=== PATIENT | male | born 1960 | race African-American/Black ===

== ENCOUNTER 2025-05-14 15:53 | Inpatient (IN) | payer OTHER ==
[~2025-05-14] VITALS: Ht 182.9 cm; Wt 54.4 kg
[2025-05-14] MEDS ORDERED: IV NS 0.9% 1,000 ML BAG IV ONE (16:30)
[2025-05-14] MEDS: IV NS 0.9% 1,000 ML BAG IV ONE (16:50)
[2025-05-14] MEDS: PIPERACILLIN /TAZOBACTAM 3.375 G in IV D5W 50 ML IV ONE (16:50)
[2025-05-14] MEDS ORDERED: DEXTROSE 50%-WATER 50 ML DISP.SYRIN ONE (16:58)
[2025-05-14 17:01] LABS: CALCIUM, SERUM 9.8 mg/dL (8.5-10.1); CREATININE 1.4 mg/dL (0.6-1.3); SODIUM SERUM 138 mmol/L (136-145); UREA NITROGEN, BLOOD 64 mg/dL (7-18)
[2025-05-14] MEDS: DEXTROSE 50%-WATER 50 ML DISP.SYRIN IV ONE (17:03)
[2025-05-14 17:10] LABS: PLATELET COUNT (AUTO) 113 K/uL (150-450); RED BLOOD CELL COUNT(AUTO) 3.56 MIL/uL (4.5-6.0); RED CELL DISTRIBUTION WIDTH 15.9 % (11.5-15.0); WHITE BLOOD COUNT (AUTO) 4.0 K/uL (4.3-11.0)
[2025-05-14 17:15] LABS: ASPARTATE AMINOTRANSFERASE 21 U/L (15-37); NT-PRO BNP 375 pg/mL (0-125); TOTAL PROTEIN, SERUM 6.4 g/dL (6.4-8.2)
[2025-05-14 17:21] LABS: INR 1.23 (0.91-1.10)
[2025-05-14] MEDS: VANCOMYCIN 1 GM in IV D5W 250 ML IV ONE (17:21)
[2025-05-14 17:33] LABS: APPEARANCE,URINE CLEAR (CLEAR); BLOOD, URINE NEGATIVE Ery/uL (NEGATIVE); LEUKOCYTE ESTERASE ,URINE NEGATIVE (NEGATIVE); NITRITE, URINE NEGATIVE (NEGATIVE); UGLUCOSE NEGATIVE (NEGATIVE)
[2025-05-14] MEDS: ALBUTEROL FS 2.5 MG/3 ML VIAL.NEB NEB ONE (17:39)
[2025-05-14 17:40] VITALS: O2SAT 99
[2025-05-14 17:50] LABS: ADD URINE CULTURE NO; SQUAMOUS EPITHELIAL CELL,UR 0-2 /HPF (None Seen)
[2025-05-14 17:51] VITALS: O2SAT 100
[2025-05-14 17:51] LABS: HYALINE CASTS, URINE Few /LPF (None Seen)
[2025-05-14] MEDS: SODIUM BICARBONATE SYR 50 MEQ/50 ML DISP.SYRIN IV ONE (17:58)
[2025-05-14] MEDS: SODIUM POLYSTYRENE SULFONATE 15 G/60 ML BOTTLE PO ONE (17:58)
[2025-05-14 18:08] LABS: LACTIC ACID 2.0 mmol/L (0.4-2.0)
[2025-05-14] MEDS ORDERED: ONDANSETRON HCL/PF 4 MG/2 ML VIAL IVP PRN (20:30)
[2025-05-14] MEDS ORDERED: MAG HYDROX/AL HYDROX/SIMETH 30 ML UDC PO PRN (20:30)
[2025-05-14] MEDS ORDERED: TEMAZEPAM 15 MG CAPSULE PO PRN (20:30)
[2025-05-14] MEDS ORDERED: ACETAMINOPHEN 325 MG TABLET PO PRN (20:30)
[2025-05-14 20:53] LABS: IRON, SERUM 56 ug/dl (50-175)
[2025-05-14 21:30] VITALS: BP 118/78; TEMP 98.1; O2SAT 95
[2025-05-14] MEDS: IV NS 0.9% 1,000 ML IV PRN (21:52)
[2025-05-14 23:37] LABS: CALCIUM, SERUM 9.6 mg/dL (8.5-10.1); CREATININE 1.5 mg/dL (0.6-1.3); SODIUM SERUM 135.0 mmol/L (136-145); UREA NITROGEN, BLOOD 60.0 mg/dL (7-18)
[2025-05-15 07:00] VITALS: BP 97/72; O2SAT 100
[2025-05-15] MEDS ORDERED: DOSING PER PHARMACY-VANCOMYCIN IV XX PRN (07:00)
[2025-05-15] MEDS ORDERED: DOSING PER PHARMACY-CEFEPIME IVPB XX PRN (07:00)
[2025-05-15 07:18] LABS: PLATELET COUNT (AUTO) 91 K/uL (150-450); RED BLOOD CELL COUNT(AUTO) 3.18 MIL/uL (4.5-6.0); RED CELL DISTRIBUTION WIDTH 15.8 % (11.5-15.0); WHITE BLOOD COUNT (AUTO) 3.7 K/uL (4.3-11.0)
[2025-05-15] MEDS: PANTOPRAZOLE 40 MG TABLET.DR PO SCH (07:49)
[2025-05-15] MEDS: CEFEPIME 2 GM in IV D5W 100 ML IV SCH (07:57)
[2025-05-15] MEDS ORDERED: CEFEPIME 1 GM in IV NS 0.9% 50 ML IV ONE (08:00)
[2025-05-15 08:05] LABS: CALCIUM, SERUM 9.5 mg/dL (8.5-10.1); CREATININE 1.8 mg/dL (0.6-1.3); PHOSPHORUS 2.5 mg/dL (2.5-4.9); SODIUM SERUM 133.0 mmol/L (136-145); UREA NITROGEN, BLOOD 60.0 mg/dL (7-18)
[2025-05-15 11:00] LABS: LYMPHOCYTES % (MANUAL) 8 % (16-48); MONOCYTES % (MANUAL) 6 % (0-11.0); NEUTROPHILS % (MANUAL) 86 (42-76); PLATELET ESTIMATE DECREASED
[2025-05-15] MEDS: ENSURE ENLIVE CHOC 237 ML CAN PO SCH (11:13)
[2025-05-15 11:42] LABS: FREE PSA < 0.06 ng/mL (0.00-45); IRON, SERUM 52 ug/dl (50-175)
[2025-05-15 11:46] LABS: PROSTATE SPECIFIC ANTIGEN SCR < 0.13 ng/mL (0.00-4.00)
[2025-05-15 15:37] LABS: CREATININE, URINE 343.0 MG/DL (30.0-125.0); URINE SODIUM, RANDOM 101.0 mmol/l (40-220); URINE TOTAL PROTEIN 308.0 mg/dL (0-11.9)
[2025-05-15 16:00] VITALS: BP 96/81; TEMP 95.4; O2SAT 100
[2025-05-15 17:16] LABS: RHEUMATOID FACTOR SCREEN NEGATIVE (NEGATIVE)
[2025-05-15] MEDS: VANCOMYCIN 1 GM in IV D5W 250ml IV SCH (18:18)
[2025-05-15 20:26] VITALS: BP 105/76; TEMP 97.3; O2SAT 94
[2025-05-15 23:20] VITALS: BP 107/86
[2025-05-15 23:21] VITALS: BP_SYST 115; BP_SYST 117; BP_DIAS 92; BP_DIAS 93
[2025-05-16 00:25] VITALS: BP 107/86; TEMP 97.3; O2SAT 94
[2025-05-16 04:42] VITALS: BP 103/79; TEMP 97; O2SAT 94
[2025-05-16 08:00] VITALS: BP 100/82; TEMP 98.1; O2SAT 95
[2025-05-16 09:08] LABS: HEPATITIS B CORE AB, TOTAL Positive (Negative); HEPATITIS B SURFACE AB (QUAL) Reactive (.)
[2025-05-16] MEDS: THERAHONEY GEL 1.5 OZ TUBE TP SCH (09:51)
[2025-05-16] MEDS: ENOXAPARIN SODIUM 30 MG/0.3 ML DISP.SYRIN SQ SCH (09:57)
[2025-05-16 10:07] LABS: FREE KAPPA LT CHAINS SERUM 92.5 mg/L (3.3-19.4); FREE LAMBDA LT CHAIN SERUM 56.9 mg/L (5.7-26.3); IMMUNOGLOBULIN M, SERUM 62 mg/dL (20-172); KAPPA/LAMBDA RATIO SERUM 1.63 (0.26-1.65)
[2025-05-16 11:07] LABS: *ANA ANTI-CENTROMERE B AB <0.2 AI (0.0-0.9); *ANA ANTI-DNA(DS) AB, QN <1 IU/mL (0-9); *ANA ANTI-JO-1 <0.2 AI (0.0-0.9); *ANA ANTICHROMATIN ANTIBODY <0.2 AI (0.0-0.9); *ANA RNP ANTIBODIES <0.2 AI (0.0-0.9); *ANA SJOGREN'S ANTI-SS-A <0.2 AI (0.0-0.9); *ANA SJOGREN'S ANTI-SS-B <0.2 AI (0.0-0.9); *ANAANTI-SCLERODERMA-70 AB <0.2 AI (0.0-0.9); *ANASMITH AB <0.2 AI (0.0-0.9); IMMUNOGLOBULIN A, SERUM 1260 mg/dL (61-437)
[2025-05-16] MEDS: ARGININE/GLUTAMINE/CALCIUM BMB 1 EACH POWD.PACK PO SCH (11:42)
[2025-05-16 13:08] LABS: CARCINOEMBRYONIC ANTIGEN (CEA) 5.3 ng/mL (0.0-4.7)
[2025-05-16 14:07] LABS: FOLIC ACID 3.7 ng/mL (>3.0)
[2025-05-16 16:00] VITALS: BP 105/83; TEMP 98.1; O2SAT 97
[2025-05-16 20:00] VITALS: BP 110/84; TEMP 97.7; O2SAT 96
[2025-05-17 07:57] LABS: ASPARTATE AMINOTRANSFERASE 29.0 U/L (15-37); CALCIUM, SERUM 8.8 mg/dL (8.5-10.1); CREATININE 1.1 mg/dL (0.6-1.3); PHOSPHORUS 1.6 mg/dL (2.5-4.9); SODIUM SERUM 129.0 mmol/L (136-145); TOTAL PROTEIN, SERUM 5.5 g/dL (6.4-8.2); UREA NITROGEN, BLOOD 57.0 mg/dL (7-18)
[2025-05-17 08:00] VITALS: BP 99/76; TEMP 97.3; O2SAT 95
[2025-05-17 08:06] LABS: PLATELET COUNT (AUTO) 68 K/uL (150-450); RED BLOOD CELL COUNT(AUTO) 3.60 MIL/uL (4.5-6.0); RED CELL DISTRIBUTION WIDTH 16.1 % (11.5-15.0); WHITE BLOOD COUNT (AUTO) 4.7 K/uL (4.3-11.0)
[2025-05-17 10:36] LABS: EOSINOPHILS % (MANUAL) 1 % (0-4); LYMPHOCYTES % (MANUAL) 6 % (16-48); MONOCYTES % (MANUAL) 2 % (0-11.0); NEUTROPHILS % (MANUAL) 91 (42-76); PLATELET ESTIMATE DECREASED
[2025-05-17] MEDS: MAGNESIUM OXIDE 400 MG TABLET PO ONE (11:12)
[2025-05-17] MEDS: IV NS 0.9% 1,000 ML IV SCH (15:21)
[2025-05-17 16:00] VITALS: BP 115/63; TEMP 97.9; O2SAT 92
[2025-05-17 16:01] LABS: HIV-1/2 ANTIBODY REACTIVE (NONREACTIVE)
[2025-05-17] MEDS: NEUTRA PHOS 1 POWD.PACKET PO ONE (16:57)
[2025-05-17 20:00] VITALS: BP 106/59; TEMP 97.3; O2SAT 93
[2025-05-17 20:41] VITALS: BP 102/81; TEMP 97.3; O2SAT 92
[2025-05-18 08:00] VITALS: BP 110/77; TEMP 97.7; O2SAT 100
[2025-05-18 08:11] LABS: ASPARTATE AMINOTRANSFERASE 30.0 U/L (15-37); CALCIUM, SERUM 8.7 mg/dL (8.5-10.1); CREATININE 1.0 mg/dL (0.6-1.3); PHOSPHORUS 1.2 mg/dL (2.5-4.9); SODIUM SERUM 128.0 mmol/L (136-145); TOTAL PROTEIN, SERUM 5.4 g/dL (6.4-8.2); UREA NITROGEN, BLOOD 50.0 mg/dL (7-18)
[2025-05-18] MEDS: SODIUM CHLORIDE 1000 MG TABLET PO SCH (09:22)
[2025-05-18] MEDS: K PHOS NEUTRAL 250 MG TABLET PO ONE (09:22)
[2025-05-18] MEDS: MAGNESIUM OXIDE 400 MG TABLET PO ONE (09:24)
[2025-05-18] MEDS ORDERED: IV NS 0.9% 250 ML IV ONE (11:46)
[2025-05-18] MEDS ORDERED: IOHEXOL-300 100 ML VIAL IV ONE (11:46)
[2025-05-18 16:00] VITALS: BP 97/70; TEMP 97.5; O2SAT 100
[2025-05-18 20:00] VITALS: BP 107/76; TEMP 97.5; O2SAT 100
[2025-05-18 20:42] VITALS: BP 107/76; TEMP 97.5; O2SAT 100
[2025-05-19] MEDS: MAGNESIUM HYDROXIDE 30 ML UDC PO PRN (02:29)
[2025-05-19 07:55] LABS: CALCIUM, SERUM 9.0 mg/dL (8.5-10.1); CREATININE 1.2 mg/dL (0.6-1.3); PHOSPHORUS 1.3 mg/dL (2.5-4.9); SODIUM SERUM 131.0 mmol/L (136-145); UREA NITROGEN, BLOOD 49.0 mg/dL (7-18)
[2025-05-19 07:57] VITALS: BP 112/68; TEMP 97.9; O2SAT 100
[2025-05-19 08:00] VITALS: BP 112/68; TEMP 97.9; O2SAT 98
[2025-05-19] MEDS: MAGNESIUM OXIDE 400 MG TABLET PO ONE (10:50)
[2025-05-19] MEDS: POLYETHYLENE GLYCOL 3350 17 GM POWD.PACK PO SCH (10:50)
[2025-05-19] MEDS: LACTULOSE 10 G/15 ML UDC (PYXIS) PO PRN (10:51)
[2025-05-19] MEDS: METHOCARBAMOL (750MG) 750 MG TABLET PO PRN (10:51)
[2025-05-19] MEDS: IBUPROFEN 400 MG TABLET PO PRN (12:19)
[2025-05-19] MEDS ORDERED: IBUPROFEN 800 MG TABLET PO PRN (12:30)
[2025-05-19 13:32] LABS: PLATELET COUNT (AUTO) 66 K/uL (150-450); RED BLOOD CELL COUNT(AUTO) 2.94 MIL/uL (4.5-6.0); RED CELL DISTRIBUTION WIDTH 16.7 % (11.5-15.0); WHITE BLOOD COUNT (AUTO) 5.2 K/uL (4.3-11.0)
[2025-05-19 14:08] LABS: BASOPHILS % (MANUAL) 0 % (0.0-2.0); EOSINOPHILS % (MANUAL) 2 % (0-4); LYMPHOCYTES % (MANUAL) 15 % (16-48); MONOCYTES % (MANUAL) 7 % (0-11.0); NEUTROPHILS % (MANUAL) 76 (42-76); PLATELET ESTIMATE DECREASED
[2025-05-19 16:00] VITALS: BP 103/65; TEMP 97.2; O2SAT 100
[2025-05-19] MEDS: K PHOS NEUTRAL 250 MG TABLET PO ONE (16:36)
[2025-05-19 20:00] VITALS: BP 116/80; TEMP 97.7; O2SAT 100
[2025-05-19] MEDS: SENNOSIDES 8.6 MG TABLET PO SCH (21:06)
[2025-05-19 21:38] VITALS: BP 116/80; TEMP 97.7; O2SAT 100
[2025-05-20 06:59] LABS: PLATELET COUNT (AUTO) 73 K/uL (150-450); RED BLOOD CELL COUNT(AUTO) 2.69 MIL/uL (4.5-6.0); RED CELL DISTRIBUTION WIDTH 17.1 % (11.5-15.0); WHITE BLOOD COUNT (AUTO) 4.6 K/uL (4.3-11.0)
[2025-05-20 07:07] LABS: CALCIUM, SERUM 9.3 mg/dL (8.5-10.1); CREATININE 1.4 mg/dL (0.6-1.3); SODIUM SERUM 131.0 mmol/L (136-145); UREA NITROGEN, BLOOD 55.0 mg/dL (7-18)
[2025-05-20 08:00] VITALS: BP 110/67; TEMP 97.5; O2SAT 100
[2025-05-20 09:39] LABS: LYMPHOCYTES % (MANUAL) 21 % (16-48); MONOCYTES % (MANUAL) 7 % (0-11.0); NEUTROPHILS % (MANUAL) 72 (42-76); PLATELET ESTIMATE DECREASED
[2025-05-20] MEDS ORDERED: AMOX-430 PO (11:55)
[2025-05-20] MEDS ORDERED: METH750T3 PO (11:55)
[2025-05-20] MEDS ORDERED: PANT40TA49 PO (11:55)
[2025-05-20] MEDS ORDERED: NUTR1PAC14 PO (11:55)
[2025-05-20] MEDS ORDERED: SODI100037 PO (11:55)
[2025-05-21 08:07] LABS: FOLIC ACID 3.4 ng/mL (>3.0)
[2025-05-22 05:08] LABS: *SPE A/G RATIO 0.6 (0.7-1.7); *SPE ALBUMIN 1.9 g/dL (2.9-4.4); *SPE ALPHA-1-GLOBULIN 0.2 g/dL (0.0-0.4); *SPE ALPHA-2-GLOBULIN 0.6 g/dL (0.4-1.0); *SPE BETA GLOBULIN 1.5 g/dL (0.7-1.3); *SPE GLOBULIN, TOTAL 3.2 g/dL (2.2-3.9); *SPE M-SPIKE Not Observed g/dL (Not Observed); *SPE PROTEIN TOTAL 5.1 g/dL (6.0-8.5); *SPEGAMMA GLOBULIN 0.8 g/dL (0.4-1.8)
== END 2025-05-20 13:40 | DRG 871 ==
LOC: ER 16:00 → TELE 20:54 → MED 21:29
PROVIDERS: ADMIT Registered Nurse Psychiatric/Mental Health; ATTEND Internal Medicine
PROC: 05HA33Z Insertion of Infusion Device into Left Brachial Vein, Percutaneous Approach (ICD-10-PCS; principal; 2025-05-18)
DX: A41.9 Sepsis, unspecified organism (principal); E43 Unspecified severe protein-calorie malnutrition; L89.153 Pressure ulcer of sacral region, stage 3; J15.9 Unspecified bacterial pneumonia; J96.01 Acute respiratory failure with hypoxia; N17.9 Acute kidney failure, unspecified; E87.1 Hypo-osmolality and hyponatremia; R64 Cachexia; D61.818 Other pancytopenia; D64.9 Anemia, unspecified; D69.6 Thrombocytopenia, unspecified; E86.0 Dehydration; E87.5 Hyperkalemia; E88.09 Other disorders of plasma-protein metabolism, not elsewhere classified; Z85.46 Personal history of malignant neoplasm of prostate; Z90.79 Acquired absence of other genital organ(s); D72.819 Decreased white blood cell count, unspecified; R53.1 Weakness; N18.9 Chronic kidney disease, unspecified; M89.8X9 Other specified disorders of bone, unspecified site; E86.9 Volume depletion, unspecified; E83.39 Other disorders of phosphorus metabolism; E83.42 Hypomagnesemia; J84.10 Pulmonary fibrosis, unspecified
CPT/HCPCS: 36415; 70450-TC; 71045-TC; 71250-TC; 71260-TC; 76770-TC; 80048-TC; 80053-TC; 80076-TC; 80202-TC; 81001; 82378; 82570-TC; 82607-TC; 82728-TC; 82784; 82962-TC; 83540-TC; 83605-TC; 83735-TC; 83880; 83921; 84100-TC; 84153-TC; 84154-TC; 84155; 84165; 84300-TC; 84425; 84443-TC; 84484-TC; 84550-TC; 85025-TC; 85027-TC; 85730-TC; 86225; 86235; 86334; 86431-TC; 86704; 86706; 86803; 86850-TC; 87040-TC; 87081-TC; 87086-TC; 87340; 87536; 87806; 92526; 92611-TC; 93307-TC; 93971-TC; 97110-TC; 97116-TC; 97530-TC; 97535-TC; A4223; G0378; J0692; J1650; J2543; J3373; J3490; J7030; J7050; J7060; Q9967